=== PATIENT | male | born 1990 | race Two or more races ===

== ENCOUNTER 2019-04-28 14:43 | Emergency (ER) | payer MEDICAID ==
[~2019-04-28] VITALS: Ht 180.3 cm; Wt 72.6 kg
[2019-04-28] MEDS ORDERED: TETRACAINE HCL 0.5% OPTH(EYE) SOLN 4ML RIGHTEYE ONE (19:15)
[2019-04-28] MEDS ORDERED: FLUORESCEIN SOD 1 MG TEST STRIP RIGHTEYE ONE (19:15)
[2019-04-28 19:25] VITALS: BP 119/78
== END 2019-04-28 20:25 | disposition home or self-care (01) ==
LOC: ER 14:43
DX: T15.81XA Foreign body in other and multiple parts of external eye, right eye, initial encounter (principal); W45.8XXA Other foreign body or object entering through skin, initial encounter; W27.8XXA Contact with other nonpowered hand tool, initial encounter; Y93.89 Activity, other specified; Y92.89 Other specified places as the place of occurrence of the external cause; Y99.8 Other external cause status
CPT/HCPCS: 65205